=== PATIENT | male | born 1950 ===

== ENCOUNTER → 2020-03-15 18:39 | Outpatient (ROUT) | payer MEDICARE, MEDICAID, SELFPAY ==
[2020-03-15 19:13] LABS: Alanine Aminotransferase 144 IU/L (<50); Albumin 4.5 g/dL (3.5-5.0); Albumin Globulin Ratio 1.1 (1.0-2.8); Alkaline Phosphatase 51 U/L (38-126); Aspartate Aminotransferase 98 IU/L (17-59); BUN Creatinine Ratio 26.4 (6-22); Bilirubin Total 0.9 mg/dL (0.2-1.3); Blood Urea Nitrogen 24 mg/dL (9-20); Calcium 9.7 mg/dL (8.4-10.2); Carbon Dioxide 27 mmol/L (22-32); Chloride 106 mmol/L (98-107); Cholesterol 149 mg/dL (140-199); Estimated Glomerular Filt Rate > 60.0 mL/min (>60); Glucose 103 mg/dL (80-110); HDL Cholesterol 37 mg/dL (40-60); HEMOLYSIS < 15 (0-50); LDL Cholesterol Calculated 99 mg/dL (<100); Lipase 115 U/L (23-300); Potassium 4.4 mmol/L (3.4-5.1); Sodium 138 mmol/L (137-145); Total Protein 8.5 g/dL (6.3-8.2); Triglycerides 64 mg/dL (35-150)
[2020-03-15 19:17] LABS: Hematocrit 52.9 % (41-53); Hemoglobin 17.9 g/dL (13.5-17.5); Mean Corpuscular HGB Conc 33.8 % (30-36); Mean Corpuscular Volume 100.6 fL (80-100); Platelet Count 214 X10^3/uL (150-400); Red Blood Cell Count 5.26 X10^6/uL (4.5-5.9); Red Cell Distribution Width 12.7 % (11.6-14.8); White Blood Cell Count 7.6 X10^3/uL (4.5-11.0)
[2020-03-15 19:18] LABS: Add Manual Diff / Slide Review YES
[2020-03-15 19:49] LABS: Macrocytosis 1+; Neutrophils Absolute Manual 4864 /uL (3000-5900); Total Cells Counted 100
== END ==
PROVIDERS: Visit Provider Student in an Organized Health Care Education/Training Program
DX: Z00.00 Encounter for general adult medical examination without abnormal findings (principal); R10.30 Lower abdominal pain, unspecified; B18.2 Chronic viral hepatitis C; F10.20 Alcohol dependence, uncomplicated; Z13.220 Encounter for screening for lipoid disorders; Z13.228 Encounter for screening for other metabolic disorders
CPT/HCPCS: 80053; 80061; 83690; 85007; 85025